=== PATIENT | female | born 1950 | race Caucasian/White ===

== ENCOUNTER 2016-10-30 08:02 | Day surgery (SDC) | payer MEDICAID ==
[2016-10-30 08:50] VITALS: BMI 37.8
[2016-10-30 09:28] VITALS: O2SAT 100
--- NOTE | 2016-10-30 10:22 | CP.SDSHP ---
Same Day Surgery H & P - History Proposed Procedure: colonoscopy - Previous Medical/Surgical History Cardiac: Hypertension Endocrine/Metabolic: Diabetes Previous Surgical History: hysterectomy - Allergies Allergies: Allergies No Known Allergies Allergy (Verified 10/30/16 08:49) - Physical Exam Vital Signs: Vital Signs 10/30/16 08:45 Temperature 97.9 F Pulse Rate 68 Respiratory 18 Rate Blood Pressure 129/66 O2 Sat by Pulse 100 Oximetry Short Stay Discharge - Short Stay Discharge Admitting Diagnosis/Reason for Visit: SCREENING Disposition: HOME/ ROUTINE
[2016-10-30] MEDS ORDERED: Propofol 10 mg/ml Inj (20 ML) ONE (10:26)
[2016-10-30] MEDS ORDERED: Lactated Ringer's 500 ML IV ONE ×2 (10:29)
[2016-10-30 14:20] VITALS: TEMP 97.3
[2016-10-30 14:28] VITALS: RESP 19
[2016-10-30 14:29] VITALS: BP 131/66; PULSE 79
== END 2016-10-30 15:14 | disposition home or self-care (01) ==
LOC: C.ENDO 08:02
PROVIDERS: ATTEND Colon & Rectal Surgery
DX: Z12.11 Encounter for screening for malignant neoplasm of colon (principal); K62.1 Rectal polyp; K57.30 Diverticulosis of large intestine without perforation or abscess without bleeding
CPT/HCPCS: 45388; 82948; 88305; J2704; J7120

== ENCOUNTER 2017-09-20 06:11 | Day surgery (SDC) | payer MEDICAID ==
[2017-09-20 06:11] VITALS: BMI 37.8
[2017-09-20 06:52] LABS: BASO % 0.9 % (0.0-2.0); EOS # 0.1 K/uL (0.0-0.7); EOS % 2.5 % (0.0-4.0); LYMPH # 1.8 K/uL (1.0-4.3); LYMPH % 39.3 % (20.0-40.0); MEAN CELL VOLUME 89.8 fL (81.0-99.0); MEAN CORPUSCULAR HEMOGLOBIN 31.4 pg (27.0-31.0); MONO # 0.4 K/uL (0.0-0.8); NEUT # 2.3 K/uL (1.8-7.0); NEUT % 49.3 % (50.0-75.0); RBC 3.82 Mil/uL (3.80-5.20); WHITE BLOOD COUNT 4.6 K/uL (4.8-10.8)
[2017-09-20 07:01] LABS: PROTHROMBIN TIME 10.6 SECONDS (9.7-12.2)
[2017-09-20 07:05] LABS: SQUAMOUS EPITHIAL 1 /hpf (0-5); URINE BACTERIA OCC (<OCC); URINE BILIRUBIN NEGATIVE (NEGATIVE); URINE BLOOD 2+ (NEGATIVE); URINE CLARITY Hazy (Clear); URINE COLOR Yellow (YELLOW); URINE GLUCOSE (UA) NORMAL (Normal); URINE LEUKOCYTE ESTERASE 3+ Leu/uL (Negative); URINE PROTEIN NEGATIVE (NEGATIVE); URINE UROBILINOGEN NORMAL mg/dL (0.2-1.0)
[2017-09-20 07:19] LABS: CALCIUM 9.3 mg/dl (8.6-10.4); GFR AFRICAN-AMERICAN > 60; GFR NON-AFRICAN AMERICAN > 60
--- NOTE | 2017-09-20 07:19 | C.PDOC ---
History Of Present Illness 67yo female, sent to the emergency department by Dr Gerry Segura for removal of ureteral stent. Patient offers no complaints at this time. Time Seen by Provider: 09/20/17 07:11 Chief Complaint (Nursing): Female Genitourinary History Per: Patient History/Exam Limitations: no limitations Current Symptoms Are (Timing): Still Present Past Medical History Reviewed: Historical Data, Nursing Documentation, Vital Signs Vital Signs: Last Vital Signs Temp 97.6 F 09/20/17 06:25 Pulse 73 09/20/17 06:25 Resp 14 09/20/17 06:25 BP 171/85 H 09/20/17 06:25 Pulse Ox 98 09/20/17 07:33 - Medical History PMH: Arthritis, Diabetes (niddm), HTN, Hypercholesterolemia Denies: Depression, Deep Vein Thrombosis, Fractures, Chronic Kidney Disease Surgical History: Cholecystectomy Denies: Pacemaker - [facility] Procedures DILATION OF LEFT URETER WITH INTRALUMINAL DEVICE, ENDO (04/18/17) FLUOROSCOPY OF LEFT KIDNEY, URETER AND BLADDER (04/18/17) INJECT/INFUSE NEC (10/02/12) Family History: States: No Known Family Hx - Social History Hx Tobacco Use: No Hx Alcohol Use: No Hx Substance Use: No - Immunization History Hx Tetanus Toxoid Vaccination: No Hx Influenza Vaccination: No Hx Pneumococcal Vaccination: No Review Of Systems Except As Marked, All Systems Reviewed And Found Negative. Physical Exam - Physical Exam Appears: Non-toxic, No Acute Distress Skin: Warm, Dry, No Rash Head: Atraumatic, Normacephalic Eye(s): bilateral: Normal Inspection Nose: Normal Oral Mucosa: Moist Lips: Normal Appearing Neck: Normal ROM Cardiovascular: Rhythm Regular, No Murmur Respiratory: Normal Breath Sounds, No Accessory Muscle Use Gastrointestinal/Abdominal: Soft, No Tenderness Extremity: Normal ROM, No Deformity Neurological/Psych: Oriented x3, Normal Speech ED Course And Treatment - Laboratory Results Result Diagrams: 09/20/17 06:50 09/20/17 06:50 O2 Sat by Pulse Oximetry: 98 (RA) Pulse Ox Interpretation: Normal Medical Decision Making Medical Decision Makin - Dr. Melissa Segura in ED at bedside and will admit to same day surgery to remove left ureteral stent. Disposition Discussed With : Guy Segura Doctor Will See Patient In The: Hospital Counseled Patient/Family Regarding: Studies Performed, Diagnosis - Disposition Disposition: HOSPITALIZED Disposition Time: 07:18 Condition: FAIR Forms: [facility] (Tu[place]uan) - Clinical Impression Clinical Impression: Retained ureteral stent - Scribe Statement The provider has reviewed the documentation as recorded by the Scribe (Willem Ibarra) All medical record entries made by the Scribe were at my direction and personally dictated by me. I have reviewed the chart and agree that the record accurately reflects my personal performance of the history, physical exam, medical decision making, and the department course for this patient. I have also personally directed, reviewed, and agree with the discharge instructions and disposition.
[2017-09-20 07:38] LABS: ALB/GLOB RATIO 1.3 (1.0-2.1); ALBUMIN 4.5 g/dL (3.5-5.0); ALT/SGPT 19 U/L (9-52); AST/SGOT 42 U/L (14-36); BLOOD UREA NITROGEN 16 mg/dL (7-17)
[2017-09-20] MEDS ORDERED: cefTRIAXone IV 1 gm in Dextros 50 ML IVPB ONE (07:41)
[2017-09-20] MEDS ORDERED: Iohexol 240 (50 ml) ONE (07:42)
[2017-09-20] MEDS ORDERED: Lidocaine 2% Jelly (Uro-Jet) ONE (07:42)
[2017-09-20] MEDS ORDERED: HYDROmorphone 0.5 mg/0.5 ml ISec IVP PRN (08:44)
[2017-09-20] MEDS ORDERED: Lactated Ringer's 1,000 ML IV SCH (09:00)
[2017-09-20] MEDS ORDERED: Oxycodone/Acetaminophen 5/325 mg Tab PO PRN (09:00)
[2017-09-20 09:58] VITALS: RESP 18
[2017-09-20 12:33] VITALS: BP 151/75; PULSE 58; TEMP 97.3; O2SAT 99
--- NOTE | 2017-09-21 11:03 | HP ---
HISTORY OF PRESENT ILLNESS: Ms. Lazar is a very pleasant but extremely noncompliant lady who presents now for kidney stone treatment. I initially met her months back, placed a stent for severe urolithiasis and at that time, I recommended further treatment. She disappeared, what I mean by that is we spoke several times but she could not come in for various reasons, related to me. She was having difficulty with insurance. On coming back to the hospital, I explained the importance of treatment. Subsequently, we brought her. We finally were able to convince her to come back in and when she came back in, she had a tremendous stone burden from the stent. I could barely get the stent in and out. See the notes from there. Now, we finally were able to get a new stent to her ureter, and now she is here for removing the stent. I have been talking to her, asking her to come in for a long time. She recently got reinstated for her insurance and so she is presenting now to the emergency room and I am doing it urgently, not going to allow her to leave again, to try to get that stent out of her ( see the addendum at the end of the note for this admission and see the operative note, but already the stent is encrusted and it is not even that old). PAST MEDICAL AND SURGICAL HISTORY: As listed on the chart. No history of an DC or CVA. Underlying hypertension. Surgically, she is looking perfectly well but she does have a lot of backup in health. I have spoken to at least three to four different family or friends who are able to provide translate at all hours of the day for her. MEDICATIONS: See chart. ALLERGIES: SEE CHART. PHYSICAL EXAMINATION: GENERAL: A well-nourished female, in no apparent distress. VITAL SIGNS: Within normal limits. HEENT: No cervical or axillary lymphadenopathy. LUNGS: Clear. HEART: Normal S1 and S2. ABDOMEN: Overall soft, nontender. No flank tenderness appreciated. ____ but I will mention now mild cystocele. There was no obvious abnormalities. No pelvic or rectal masses. DIAGNOSES: 1. Urolithiasis 2. Hematuria. 3. Flank pain. 4. Colic. 5. Stenting and retained stent at this point. ASSESSMENT AND PLAN: A very pleasant lady, I have been speaking to her, it is very difficult. ____ for various reasons. She is now here in the emergency room with the stent bothering her. I am not letting her go. I am going to ask her to stay. I discussed the options with the patient. So, at this point, we are going to bring her as urgent/emergent admission. She is agreeable and amenable. She had been she has had difficulty and mostly it is related to the insurance factor and therefore hopefully at this point, I will get admit her as an emergency and then further plans will follow. The plan is as follows: 1. Antibiotic prophylaxis. 2. Cystoscopy. 3. Stent removal. Bryan Segura MD
--- NOTE | 2017-09-21 11:51 | OP ---
Copied To: Brayn Segura MD Attending MD: Bryan Segura MD PROCEDURE DATE: 09/20/2017 PREOPERATIVE DIAGNOSES: Urolithiasis, retained stent, hydronephrosis, hematuria. POSTOPERATIVE DIAGNOSES: Urolithiasis, retained stent, hydronephrosis, hematuria. PROCEDURES: cystoscopy, removal of right double-J stent. COMPLICATIONS: None. BLOOD LOSS: Less than 10 mL. FINDINGS: The bladder mucosa is mostly within normal limits. At the orifice, it is fairly red. Pictures taken and saved, but more firmly the stent in the distal end is very encrusted, but pulled out nice and easily. It is just the plaque that is in the urinary bladder. There were no complications. INDICATIONS: See history and physical for further details. A very pleasant lady, who is here for the above-listed procedure. Very pleasant, but extremely noncompliant. See history and physical for further details. Finally, she presented now to the emergency room, and issue really mostly about insurance. She presented on Wednesday to the office. night, she called me that she was having stent discomfort and pain, but was now having insurance, I asked her to come to the office immediately. She came on Wednesday and she would not allow me to remove the stent. I explained to the patient that we need to get that stent out as quickly as possible. She came to the emergency room, I am not going to ask her to leave. I am going to do the opposite, I am going to ask her if she is going to say, which she is going to stay, so we discussed the options and she is now here for removal of stent. DESCRIPTION OF PROCEDURE: After obtaining informed consent, the patient was placed on the table. Routine monitors were placed. Timeout was called to confirm the patient and positioning. We introduced cystoscope via urethra. We identified the ureteral orifice. We removed the double-J stent without difficulty and pull out intact. Picture was taken of the distal end. Actually, the entire stent, but really the only problem is the distal end remained pretty clear. The patient tolerated the procedure without complications. Bryan Segura MD
== END 2017-09-20 11:34 | disposition home or self-care (01) ==
LOC: C.ER 06:11 → C.SDS 07:34
PROVIDERS: ATTEND Urology
DX: Z46.6 Encounter for fitting and adjustment of urinary device (principal); E11.9 Type 2 diabetes mellitus without complications; E78.00 Pure hypercholesterolemia, unspecified; G89.29 Other chronic pain; I10 Essential (primary) hypertension; N13.2 Hydronephrosis with renal and ureteral calculous obstruction; Z91.19 Patient's noncompliance with other medical treatment and regimen
CPT/HCPCS: 52310; 80053; 81001; 85025; 85610; 85730; 88300; J0696